=== PATIENT | female | born 1950 | race Caucasian/White ===

== ENCOUNTER 2023-07-16 08:56 | Emergency (ER) | payer MEDICARE, SELFPAY ==
[2023-07-16 09:02] VITALS: BP 161/74; PULSE 91; RESP 22; TEMP 36.1; O2SAT 99; BMI 36.5
[2023-07-16 09:22] LABS: Appearance Urine Slightly Cloudy (Clear); Bilirubin Urine Negative (Negative); Blood Urine 2+ (Negative); Color Urine Yellow (Yellow); Glucose Urine Negative (Negative); Ketones Urine Trace (Negative); Leukocyte Esterase Urine 3+ (Negative); Nitrite Urine Negative (Negative); Protein Urine 2+ (Negative); Specific Gravity Urine >= 1.030 (1.000-1.030); Urobilinogen Urine 0.2 (0.2-1.0)
[2023-07-16 09:33] LABS: Bacteria Urine Moderate; Squamous Epithelial Cell Urine Few (None-Few); WBC Urine >100 (0-5)
--- NOTE | 2023-07-16 09:38 | ED_ITS ---
HPI - General Adult General Date Seen: 07/16/23 Chief complaint: Urogenital Problems, Female Stated complaint: possible UTI Time Seen by Provider: 07/16/23 09:37 History of Present Illness HPI narrative: 73-year-old female presenting to the ER today for evaluation of urinary tract infection symptoms. Symptoms began about 4 weeks ago on June 15. She was put on a course of antibiotics but did not improve. She had a vaginal exam that showed a possible fungal infection and was prescribed an antifungal but did not take it because she was worried it would cause her fibromyalgia flare up. According to records through [facility] she has a history of colon polyps, history of endometrial cancer, depression, sleep apnea, kidney stones, fibromyalgia. It looks like she had urinalyses done through the [facility] system on 06/15 (showed> 100 WBC, 6-10 RBC, negative nitrite. Urine Culture grew multiple organisms), 06/27 (showed 3-5 WBC, 0-2 RBC, negative nitrite), and 07/01 (only urine micro was done, showed 50-100 WBC. Urine Culture grew multiple organisms. She also had a vaginal swab that was positive for Chloé glabrata). She was prescribed cephalexin on 06/15. She was prescribed Duricef on 07/01. She says that with each course of antibiotics her symptoms temporarily got better but then she has resumption of her symptoms. For the past several days she has had recurrent bouts of urgency and frequency as well as dysuria and suprapubic abdominal pain. No also developing pain low in her low back (but not into her flank). She is not having any fever chills. No nausea or vomiting. No constitutional symptoms. No vaginal bleeding or discharge. Given the multiple recurrences this month, her providers told her to come here to the ER. Related Data Home Medications ?Medication ?Instructions ?Recorded ?Confirmed sertraline 100 mg tablet mg PO 07/16/23 Previous Rx's ?Medication ?Instructions ?Recorded ciprofloxacin HCl 500 mg tablet 500 mg PO BID PRN #14 tabs 07/16/23 fluconazole 150 mg tablet 150 mg PO DAILY 1 dose #1 tab 07/16/23 phenazopyridine 200 mg tablet 200 mg PO TID PRN pain #10 tabs 07/16/23 (Pyridium) Allergies Allergy/AdvReac Type Severity Reaction Status Date / Time No Known Drug Allergies Allergy Verified 07/16/23 10:55 [facility] Social History Smoking Status: Never smoker Do you use any of these nicotine containing products: None How often do you have a drink containing alcohol: never How often do you have six or more drinks on one occasion: Never AUDIT-C Alcohol total score: 0 Exam Narrative: Exam Narrative: Constitutional: Appears well-developed and well-nourished. Alert. Conversant. Non toxic. HENT: Head: Atraumatic. Nose: Nose normal. Mouth/Throat: Oral mucosa is clear and moist. no trismus. Pharynx normal Eyes: Conjunctivae normal. EOM normal. Pupils equal, round, and reactive to light. No scleral icterus. Neck: Normal range of motion. Neck supple. No tracheal deviation present. Cardiovascular: Normal rate, regular rhythm. No gallop. No friction rub. No murmur heard. Symmetric radial artery pulses Pulmonary/Chest: Effort normal. No stridor. No respiratory distress. No wheezes. No rales. No rhonchi . No tenderness. Abdominal: Soft. Bowel sounds normal. No distension. No mass. Suprapubic tenderness. No rebound. No guarding. No CVA tenderness Musculoskeletal: RUE: Normal range of motion. No tenderness. No deformity LUE: Normal range of motion. No tenderness. No deformity RLE: Normal range of motion. No edema. No tenderness. No deformity LLE: Normal range of motion. No edema. No tenderness. No deformity Neurological: Alert and oriented to person, place, and time. Normal strength. CN II-VII intact. No sensory deficit. GCS eye subscore is 4. GCS verbal subscore is 5. GCS motor subscore is 6. Normal coordination Skin: Skin is warm and dry. No rash noted. No pallor. Normal capillary refill. Psychiatric: Normal mood. Normal affect. Const: Vital Signs, click to edit/add: Vital Signs - 24 hr 07/16/23 09:02 Temperature 97 F L Pulse Rate [Pulse Oximeter] 91 Respiratory Rate 22 Blood Pressure [Ri ght Forearm] 161/74 H Pulse Oximetry 99 Oxygen Delivery Me thod Room Air Course Vital Signs Vital signs: Initial Vital Signs Temperature 97 F L 07/16/23 09:02 Temperature Source Temporal Artery Scan 07/16/23 09:02 Pulse Rate 91 07/16/23 09:02 Respiratory Rate 22 05/31/24 09:02 Blood Pressure 161/74 H 07/16/23 09:02 Blood Pressure Mean 103 07/16/23 09:02 Pulse Oximetry 99 07/16/23 09:02 Oxygen Delivery Method Room Air 07/16/23 09:02 Vital Signs Temperature 97 F L 07/16/23 09:02 Pulse Rate 91 07/16/23 09:02 Respiratory Rate 22 07/16/23 09:02 Blood Pressure 161/74 H 07/16/23 09:02 Pulse Oximetry 99 07/16/23 09:02 Oxygen Delivery Method Room Air 07/16/23 09:02 Temperature 97 F L 07/16/23 09:02 Pulse Rate 91 07/16/23 09:02 Respiratory Rate 22 07/16/23 09:02 Blood Pressure 161/74 H 07/16/23 09:02 Pulse Oximetry 99 07/16/23 09:02 Oxygen Delivery Method Room Air 07/16/23 09:02 Medications Administered Medications: Discontinued Medications Generic Name Dose Route Start Last Admin Trade Name Pamela PRN Reason Stop Dose Admin Ciprofloxacin 500 mg 07/16/23 11:40 07/16/23 11:47 Ciprofloxacin 500 Mg Tablet PO 07/16/23 11:41 500 mg ONCE ONE Administration Phenazopyridine HCl 200 mg 07/16/23 10:00 07/16/23 10:35 Phenazopyridine Hcl 200 Mg Tablet PO 07/16/23 10:01 200 mg ONCE ONE Administration Medical Decision Making MDM Narrative Medical decision making narrative: This is a pleasant 73-year-old female presenting to the ER today with symptoms indicative of UTI including suprapubic abdominal pain, low back pain, urinary frequency and urgency, dysuria. Urinalysis does show pyuria. This is actually her 3rd episode of these symptoms this month. Previous visits to the urgent care have shown abnormal urinalyses and she was put on 2 different courses of cephalosporin but has recurrent symptoms. I do suspect he probably has a complicated UTI, possibly a resistant pathogen. Differential would include resistant pathogen. We did have the nurses do a straight cath to get a urine sample directly from the bladder to avoid contamination will send urine culture from the catheterized specimen. Since she has failed antibiotics with cephalosporins will switch to fluoroquinolone. First dose of Cipro administered here in the ER. CT scan is obtained to look for other anatomic abnormality affecting her urinary tract. No evidence for any kidney stone or bladder stone or ureteral duplication or other explanation for recurrent UTI. CT scan does show bladder wall inflammation consistent with cystitis which correlates with her symptoms. Laboratory workup is reassuring. Normal white count. Normal kidney function. Vital signs are stable. She is not febrile. No sepsis physiology. At this point, with reasonable clinical confidence I think she is safe for outpatient management. Will put her on ciprofloxacin. We will have to await urine culture results to determine sensitivities and adjust antibiotics as necessary. Patient was diagnosed with a yeast infection in the clinic in mid June. She is not sure if it has been treated or not. I did have her repeat a vaginal self swab today which is again positive for Chloé glabrata. Will treat with oral antifungals, Diflucan 150 mg once. Patient notified by phone call and she will greens picker the prescription and take it. Lab Data Labs: Lab Results 07/16/23 07/16/23 07/16/23 Range/Units 09:10 10:05 10:15 WBC 6.64 (4.50-11.00) K/uL RBC 4.05 (4.00-5.20) m/uL Hgb 12.2 (12.0-16.0) gm/dL Hct 37.5 (33.0-51.0) % MCV 93 (80-100) fL MCH 30 (26-34) pg MCHC 33 (32-36) gm/dL RDW Coeff of Justin 12.7 (11.5-15.5) % Plt Count 231 (140-440) K/uL Neut % (Auto) 71.2 (42.0-72.0) % Lymph % (Auto) 22.1 (20-44) % Lea % (Auto) 6.0 (0.0-11.0) % Eos % (Auto) 0.2 (0.0-7.0) % Baso % (Auto) 0.3 (0.0-3.0) % Neut # (Auto) 4.73 (1.7-7.0) K/uL Lymph # (Auto) 1.47 (0.90-2.90) K/uL Lea # (Auto) 0.40 (0.00-0.90) K/UL Eos # (Auto) 0.01 (0.00-0.50) K/uL Baso # (Auto) 0.02 (0.00-0.30) K/uL Abs Immat Gran (auto) 0.01 (0.00-0.30) K/uL Imm/Tot Granulo (auto) 0.2 % Sodium 139 (135-149) mmol/L Potassium 3.9 (3.6-5.1) mmol/L Chloride 108 (96-114) mmol/L Carbon Dioxide 26 (20-32) mmol/L Anion Gap 5 L (7-15) mEq/L BUN 20 (7-30) mg/dL Creatinine 0.9 (0.5-1.5) mg/dL Estimated Creat Clear 34.91 Estimated GFR 67 ml/min Glucose 108 (60-115) mg/dL Calcium 9.4 (8.4-10.6) mg/dL Urine Color Yellow (Yellow) Urine Appearance Slightly Cloudy A (Clear) Urine pH 6.0 (5.0-8.5) Ur Specific [place] >= 1.030 (1.000-1.030) Urine Protein 2+ A (Negative) Urine Glucose (UA) Negative (Negative) Urine Ketones Trace A (Negative) Urine Blood 2+ A (Negative) Urine Nitrite Negative (Negative) Urine Bilirubin Negative (Negative) Urine Urobilinogen 0.2 (0.2-1.0) Ur Leukocyte Esterase 3+ A (Negative) Urine RBC 10-25 A (0-2) Urine WBC >100 A (0-5) Ur Squamous Epith Cells Few (None-Few) Urine Bacteria Moderate A (None) Vaginal Bacterial Vaginosis Negative (Negative) Vaginal Chloé species NOT DETECTED (No Detected) Vag C. glabrata/krusei DETECTED A (No Detected) Vag T. vaginalis NOT DETECTED (No Detected) Imaging Data CT scan - abdomen: Attestation: I have reviewed the pertinent imaging results. Radiologist's impression: IMPRESSION: 1. No ureteral stones or hydroureteronephrosis. 2. New circumferential stranding about the urinary bladder, concerning for cystitis. No bladder stone. 3. Bilateral nonobstructing nephrolithiasis. Discharge Plan Discharge Clinical Impression: Urinary tract infection, Yeast infection Patient Disposition: Home, Self-Care Condition: Stable Instructions: Urinary Tract Infection in Women (DC) Additional Instructions: As we discussed, please start on the new antibiotic (Cipro) twice daily for 7 days. We will call you if your urine culture grows unusual strain of bacteria that requires another change in antibiotics. If you have worsening symptoms such as fever or chills, uncontrolled nausea vomiting, flank pain or back pain, or worsening abdominal pain, or weakness, come back to the ER right away to be rechecked. Even if you are getting better, Please follow-up with your regular doctor and [facility] next week for a recheck. Prescriptions: New phenazopyridine [Pyridium] 200 mg tablet 200 mg PO TID PRN (Reason: pain) Qty: 10 0RF ciprofloxacin HCl 500 mg tablet 500 mg PO BID PRNQty: 14 0RF fluconazole 150 mg tablet 150 mg PO DAILY Qty: 1 0RF Rx Instructions: administer on day 1 of therapy No Action sertraline 100 mg tablet PO Follow Up/Referrals: Tenisha Gupta MD [Primary Care Provider] - Stand Alone Forms: [employer] Info Instructions
--- NOTE | 2023-07-16 10:02 | CRLHL7_ITS ---
For Patients: As a result of the Century Cures Act, medical imaging exams and procedure reports are released immediately into your electronic medical record. You may view this report before your referring provider. If you have questions, please contact your health care provider. INDICATION: Lower abdominal pain. Back pain. TECHNIQUE: CT abdomen and pelvis acquired without contrast. COMPARISON: CT abdomen and pelvis 12/19/2016. FINDINGS: Lower chest: Unremarkable. Liver: Unremarkable. Spleen: Unremarkable. Pancreas: Unremarkable. Gallbladder and bile ducts: No calcified stones or biliary ductal dilatation. Kidneys: Bilateral nonobstructing renal stones measuring up to 4 mm on the right. Bilateral parapelvic cysts, unchanged. No ureteral stones or hydroureteronephrosis. Adrenal glands: Unremarkable. GI tract: No obstruction or focal inflammatory changes. Normal appendix. No free air or free fluid. Lymph nodes: No pathologic lymphadenopathy. Vascular structures: Unremarkable. Pelvic Organs: Mild circumferential heterogeneous stranding about the urinary bladder is new. No bladder stone. Bladder as imaged is otherwise unremarkable. Hysterectomy. Bones: No acute or suspicious osseous abnormality. Degenerative changes of the spine and pelvis. IMPRESSION: 1. No ureteral stones or hydroureteronephrosis. 2. New circumferential stranding about the urinary bladder, concerning for cystitis. No bladder stone. 3. Bilateral nonobstructing nephrolithiasis. Dictated by Garland Wen MD @ 07/16/2023 11:21:00 AM Please note that all CT scans at this facility use dose modulation, iterative reconstruction, and/or weight-based dosing when appropriate to reduce radiation dose to as low as reasonably achievable. Dictated by: Garland Wen MD @ 07/16/2023 11:21:11 (Electronically Signed)
[2023-07-16 10:26] LABS: Basophils Absolute Auto 0.02 K/uL (0.00-0.30); Basophils Percent Auto 0.3 % (0.0-3.0); Eosinophils Absolute Auto 0.01 K/uL (0.00-0.50); Eosinophils Percent Auto 0.2 % (0.0-7.0); Hematocrit 37.5 % (33.0-51.0); Hemoglobin* 12.2 gm/dL (12.0-16.0); Immature Granulocytes Abs Auto 0.01 K/uL (0.00-0.30); Immature Granulocytes Pct Auto 0.2 %; Lymphocytes Absolute Auto 1.47 K/uL (0.90-2.90); Lymphocytes Percent Auto 22.1 % (20-44); Mean Corpuscular HGB Conc 33 gm/dL (32-36); Mean Corpuscular Hemoglobin 30 pg (26-34); Mean Corpuscular Volume 93 fL (80-100); Neutrophils Absolute Auto 4.73 K/uL (1.7-7.0); Neutrophils Percent Auto 71.2 % (42.0-72.0); Platelet Count* 231 K/uL (140-440); RDW Coefficient of Variation % 12.7 % (11.5-15.5); Red Blood Count 4.05 m/uL (4.00-5.20); White Blood Count* 6.64 K/uL (4.50-11.00)
[2023-07-16 10:27] LABS: Slide Review Reflex No
[2023-07-16] MEDS: PHENAZOPYRIDINE HCL 200 MG TABLET PO (10:35)
[2023-07-16 10:39] LABS: Chloride* 108 mmol/L (96-114); Potassium* 3.9 mmol/L (3.6-5.1); Sodium* 139 mmol/L (135-149)
[2023-07-16 10:42] LABS: Anion Gap 5 mEq/L (7-15); Blood Urea Nitrogen* 20 mg/dL (7-30); Carbon Dioxide* 26 mmol/L (20-32); Creatinine* 0.9 mg/dL (0.5-1.5); Est. Creatinine Clearance* 34.91; Estimated Glomerular Filt Rate 67 ml/min; Glucose* 108 mg/dL (60-115)
[2023-07-16 10:43] LABS: Calcium* 9.4 mg/dL (8.4-10.6)
[2023-07-16] MEDS: CIPROFLOXACIN 500 MG TABLET PO (11:47)
[2023-07-16 11:55] LABS: Bacterial Vaginosis* Negative (Negative); Candida glab/krus DETECTED (No Detected); Candida species NOT DETECTED (No Detected); Trichomonas vaginalis NOT DETECTED (No Detected)
== END 2023-07-16 11:57 | disposition home or self-care (01) ==
PROVIDERS: Emergency Provider Emergency Medicine; PCP Family Medicine
DX: N39.0 Urinary tract infection, site not specified (principal); B37.9 Candidiasis, unspecified
CPT/HCPCS: 36415; 74176; 80048; 81001; 81513; 85025; 87086; 87481; 87661; 99284; A9270

== ENCOUNTER 2025-01-17 11:53 | Emergency (ER) | payer MEDICARE, SELFPAY ==
--- OUTSIDE RECORDS SUMMARY | 2025-01-17 11:56 | XMS_ITS | Clinical Summary ---
Author Organization [facility] Address [address] [place] [id number] Care Team Providers Care Sanitarian Aide Name Role Phone Tenisha Gupta MD Primary Care Provider Allergies Active Allergy Reactions Criticality Noted Date Comments Rosuvastatin Confusion 01/21/2023 Medications medication order composer Sushila nasal CPAP mask with headgear. Diagnosis 327.23 1 unit 0 5 Active cetirizine (ZYRTEC) 10 mg tablet Take 1 tablet by mouth once daily. 0 8 Active sertraline 100 mg tabletIndicatio ns:Depression, major, single episode, mild Take 1 Tablet (100 mg) by mouth once daily. 90 Tablet 3 5 Active Active Problems Problem Noted Date Diagnosed Date Depression, major, single episode, mild 01/22/20 23 Adenomatous colon polyp 09/16/2018 Overview (09/16/2018): Colonoscopy 09/2018 multiple polyps, repeat in 3 years Kidney stone on right side 12/30/2016 Kidney stone on left side 12/30/2016 Endometrial cancer (HC). FIGO IA, grade 2. / 6 11/11/2015 DIANA (obstructive sleep apnea) 03/28/2014 Post-menopausal bleeding 10/03/2013 Abdominal pain 07/22/2012 Fibromyalgia 12/08/2011 Immunizations Immunization Administration Dates Next Due Pneumococcal conj 13-Valent (Prevnar 13) 019 Tdap 07/19/2012 Family History Medical History Relation Name Comments chronic lyme Sister Cancer-breast No Family History Cancer-colon No Family History Relation Name Status Comments Father (Age 50s) plane craps dealer sh Mother Alive Sister Social History Tobacco Use Types Packs/Day Years Used Date Smoking Tobacco: Former Cigarettes 0.5 3.2 0 08/12/1966 - 10/10/1969 Smokeless Tobacco: Never Tobacco Cessation:Counseling Given: Yes Alcohol Use Standard Drinks/Week Comments No 0 (1 standard drink = 0.6 oz pur e alcohol) PHQ-2 Answer Date Recorded PHQ-2 TOTAL SCORE 0 05/18/2024 Social Connections Answer Date Recorded Do you often feel lonely or isolated from those around you? 0 07/01/2023 Financial Resource Strain Answer Date R ecorded Difficulty of Paying Living Expenses 3 07/01/2023 Difficulty of Paying Living Expenses Not on file 07/01/2023 Food Insecurity Answer Date Recorded Do you worry your food will run out before you are able to buy more? 1 07/01/2023 Transportation Needs Answer Date Record ed Does lack of transportation keep you from medica l appointments? 1 07/01/2023 Does lack of transportation keep you from work, meetings or getting things that you need? 1 07/01/2023 Housing Stability Answer Date Recorded What is your housing situation today? 1 07/01/2023 Utilities Answer Date Recorded Do you have trouble paying f or utilities (for example, heat, electricity, water, phone)? 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 Gender Identity Not on file Sexual Orientation Not on file Occupation Industry Job Start Date Job End Date self employed Not on file Not on file Not on file Obstetrics History Para Term AB IAB SAB Ectopic Multiple Livin g Live Births 2 2 2 Date Outcome GA Total Labor Labor/2nd/3rd Weight Sex Type Anes PTL Lizeth A1 A5 Name Clin Para Para Last Filed Vital Signs Vital Sign Reading Time Taken Comments Blood Pressure 145/68 05/18/2024 11:06 AM CDT Pulse 70 05/18/2024 11:06 AM CDT Temperature 36.7 C (98.1 F) 07/02/2023 11:28 AM CDT Respiratory Rate 16 10/11/2015 2:15 PM CDT Oxygen Saturation 99% 05/18/2024 11:06 AM CDT Inhaled Oxygen Concentration - - Weight 88.3 kg (194 lb 9.6 oz) 05/18/2024 11:06 AM CDT Height 152 cm (4' 11.84) 05/18/2024 11:06 AM CD T Body Mass Index 38.2 05/18/2024 11:06 AM CDT Plan of Treatment Health Maintenance Due Date Last Done Comments Zoster (shingles) series for age 50+ (1 of 2) 1998 Pneumococcal series for age 50+ (2 of 2 - PCV20 or PCV21) 08/10/2019 08/09/2018 Tetanus booster 07/19/2022 07/19/2012 RSV vaccine for adults or (1 - 1-dose 75+ series) 2023 COVID-19 vaccine series ( - season) 2024 Influenza Vaccine (#1) 2024 BMI (ht and wt on same day) for age 18+ 05/18/2025 05/18/2024, 07/02/2023, 01/02/2022, Additional history exists Depression screening for age 12+ 05/18/2025 05/18/2024, 01/21/2023, 01/02/2022, Additional history exists Medicare Wellness for age 65+ 05/19/2025 05/18/2024 DEXA/DXA scan for age 65+ Completed 08/11/2018 Hepatitis C screening for age 18-79 Completed 01/02/2022 Hepatitis B series for 19+ Aged Out N o longer eligible based on patient's age to complete this topic Procedures Procedure Name Priority Date/Time Associated Diagnosis Comments ANTI HCV Routine 01/02/2022 9:11 AM TABLE GAMES SUPERVISOR Need for hepatitis C screening test XR DXA BONE DENSITY 2 SITES AXIAL Routine 08/11/2018 9:28 AM CDT Post-menopausal from Last 3 Months or Most Recently Relevant to Health Maintenance Results * ANTI HCV (01/02/2022 9:11 AM TABLE GAMES SUPERVISOR) HEPATITIS C ANTIBODY Non-React gael Non-React gael 01/04/2022 1:51 PM TABLE GAMES SUPERVISOR [facility] Comment:Antibodies to HCV no t detected; does not exclude the possibility of exposure to HCV. Blood BLOOD SPECIMEN / Unknown Venipuncture / Unknown 01/02/2022 9:11 AM TABLE GAMES SUPERVISOR 01/02/2022 9:14 AM TABLE GAMES SUPERVISOR Tenisha Gupta MD SEND OUTS Final R esult [facility] [address] [place] [address], [place] * (ABNORMAL) XR DXA BONE DENSITY 2 SITES AXIAL (08/11/2018 9:28 AM CDT) Anatomical Region Laterality Modality Spine, HIPS, HIPL, HIPR Other Narrative 08/22/2018 5:29 PM CDT Please see scanned document for results of this study. Tenisha Gupta MD DEXA Final R esult from Last 3 Months or Most Recently Relevant to Health Maintenance Insurance MEDICARE PART A HB ONLY MEDICARE PB ONLY Advance Directives * Full Code (Latest Code Status on File) Date Activated Date Inactivated Comments 10/11/2015 10:15 AM 10/11/2015 4:47 PM * Full Code Date Activated Date Inactivated Comments 10/11/2015 6:12 AM 10/11/2015 10:15 AM * Full Code Date Activated Date Inactivated Comments 10/20/2013 6:08 AM 10/20/2013 11:59 AM Care Teams Sanitarian Aide Relationship Specialty Start Date End Date Tenisha Gupta MD PCP - General Family Practice 12/22/16
[2025-01-17 12:12] VITALS: BP 188/81; PULSE 82; RESP 18; TEMP 36.6; O2SAT 99; BMI 36.1
--- NOTE | 2025-01-17 12:20 | ED.GENADULT ---
HPI - General Adult General Time Seen by Provider: 12:20 Date Seen: 01/17/25 Chief complaint: Chest Pain Stated complaint: possible Heat attack indigestion Time Seen by Provider: 01/17/25 12:07 History of Present Illness HPI narrative: Robert is a 74-year-old female with depression currently on Zoloft, allergies seasonal, Zyrtec presents emerged department via private car with with possible chest pain and indigestion. Patient states she got up this morning and had breakfast at 8 am, shortly after she developed some epigastric discomfort, the pain radiated to the back, associated nausea vomiting, she denies any diarrhea. Patient did have hysterectomy, 2 C sections. She then developed some atypical chest discomfort tightness, generalized, no changes with inspiration, she denied any lightheadedness or dizziness. Epigastric discomfort improved, she did develop some bilateral jaw pain heaviness to both of her arms. Minimal pain at this time. History of any CAD or stroke, no hypertension or diabetes. Patient states that her mood has been normal. Related Data Home Medications ?Medication ?Instructions ?Recorded ?Confirmed sertraline 100 mg tablet mg PO 07/16/23 Previous Rx's ?Medication ?Instructions ?Recorded ciprofloxacin HCl 500 mg tablet 500 mg PO BID PRN #14 tabs 07/16/23 fluconazole 150 mg tablet 150 mg PO DAILY 1 dose #1 tab 07/16/23 phenazopyridine 200 mg tablet 200 mg PO TID PRN pain #10 tabs 07/16/23 (Pyridium) Allergies Allergy/AdvReac Type Severity Reaction Status Date / Time No Known Drug Allergies Allergy Verified 01/17/25 14:35 Review of Systems Status of ROS: Reports: 10 or more systems reviewed and unremarkable except as noted in History and below PFSH PFS Social History Smoking Status: Never smoker Do you use any of these nicotine containing products: None How often do you have a drink containing alcohol: never How often do you have six or more drinks on one occasion: Never AUDIT-C Alcohol total score: 0 Non-prescribed substance use: denies use Exam Narrative: Exam Narrative: General: No obvious distress sitting comfortably HEENT: Pupils equal round reactive to light, extra muscles intact Oropharynx moist, patient able to actively open and close her mouth, no audible click No cervical pain Lungs: Clear to auscultation bilaterally Heart: Normal sinus rhythm S1-S2 Abdomen: Mild tenderness to palpation the epigastric region Bowel sounds present, soft. Muscle skeletal: No lower extremity edema, +5 strength upper lower extremities Neuro: Alert awake and oriented x3 Const: Vital Signs, click to edit/add: Vital Signs - 24 hr 01/17/25 12:12 Temperature 98 F Pulse Rate [Pulse Oximeter] 82 Respiratory Rate 18 Blood Pressure [Le ft Upper Arm] 188/81 H Pulse Oximetry 99 Oxygen Delivery Me thod Room Air Course Course ED Course: 12:00 PM: aidet performed, vitals are normal at this time, mildly elevated blood pressure will continue monitor, workup will include IV peripheral, 15 mg IV Toradol for atypical pain, will obtain EKG, troponin I, CBC, CRP, CMP, D-dimer and lipase, critical presentation for ACS, will plan to rule out. Patient has no pain at this time. Differential includes gastritis, NSTEMI, STEMI, ACS, PE, aortic dissection, pneumonia, heart failure, costochondritis, cholecystitis, pancreatitis, hepatitis, colitis as well as other etiologies. Reevaluation(s) Time of Reevaluation #1: 15:14 Reevaluation #1: CTA chest angiogram pulmonary arteries with IV contrast: IMPRESSION: No evidence of pulmonary embolus or acute airspace disease. EKG showed a normal sinus rhythm, nonspecific ST and T-wave abnormality, no elevation or depression, 1st high sensitivity troponin was within normal limits and negative, CBC showed no leukocytosis or anemia, comprehensive metabolic panel showed normal electrolytes, renal function and LFTs, D-dimer mildly elevated at 0.66, CTA obtained which showed no acute cardiopulmonary process, 2nd high sensitivity troponin was also within normal limits 5.5, she was given additional GI cocktail and resolved her symptoms. Offered outpatient stress echo but she deferred at this time, should follow-up with her primary care provider over the next 7-10 days, return precautions given. Vital Signs Vital signs: Initial Vital Signs Respiratory Effort Normal, Spontaneous 01/17/25 11:53 Respiratory Depth Normal 01/17/25 11:53 Respiratory Pattern Normal 01/17/25 11:53 Vital Signs Temperature 98 F 01/17/25 12:12 Pulse Rate 82 01/17/25 12:12 Respiratory Rate 18 01/17/25 12:12 Blood Pressure 188/81 H 01/17/25 12:12 Pulse Oximetry 99 01/17/25 12:12 Oxygen Delivery Method Room Air 01/17/25 12:12 Temperature 98 F 01/17/25 12:12 Pulse Rate 82 01/17/25 12:12 Respiratory Rate 18 01/17/25 12:12 Blood Pressure 188/81 H 01/17/25 12:12 Pulse Oximetry 99 01/17/25 12:12 Oxygen Delivery Method Room Air 01/17/25 12:12 Medications Administered Medications: Discontinued Medications Generic Name Dose Route Start Last Admin Trade Name Pamela PRN Reason Stop Dose Admin Ketorolac Tromethamine 15 mg 01/17/25 12:18 01/17/25 13:34 Ketorolac 15 Mg/Ml Inj IVP 01/17/25 12:19 15 mg ONCE ONE Administration Medical Decision Making Lab Data Labs: Lab Results 01/17/25 01/17/25 Range/Units 12:32 12:59 WBC 5.44 (4.50-11.00) K/uL RBC 4.16 (4.00-5.20) m/uL Hgb 12.8 (12.0-16.0) gm/dL Hct 38.9 (33.0-51.0) % MCV 94 (80-100) fL MCH 31 (26-34) pg MCHC 33 (32-36) gm/dL RDW Coeff of Justin 12.8 (11.5-15.5) % Plt Count 181 (140-440) K/uL Neut % (Auto) 52.1 (42.0-72.0) % Lymph % (Auto) 38.4 (20-44) % Republic % (Auto) 8.1 (0.0-11.0) % Eos % (Auto) 0.6 (0.0-7.0) % Baso % (Auto) 0.4 (0.0-3.0) % Neut # (Auto) 2.84 (1.7-7.0) K/uL Lymph # (Auto) 2.09 (0.90-2.90) K/uL Republic # (Auto) 0.40 (0.00-0.90) K/UL Eos # (Auto) 0.03 (0.00-0.50) K/uL Baso # (Auto) 0.02 (0.00-0.30) K/uL Abs Immat Gran (auto) 0.02 (0.00-0.30) K/uL Imm/Tot Granulo (auto) 0.4 % D-Dimer Quant (PE/DVT) 0.66 H (0.00-0.50) ug/ml Sodium 138 (135-149) mmol/L Potassium 4.3 (3.6-5.1) mmol/L Chloride 100 (96-114) mmol/L Carbon Dioxide 28 (20-32) mmol/L Anion Gap 10 (7-15) mEq/L BUN 15 (7-30) mg/dL Creatinine 0.8 (0.5-1.5) mg/dL Estimated Creat Clear 36.12 Estimated GFR 76 ml/min Glucose 127 H (60-115) mg/dL Calcium 9.7 (8.4-10.6) mg/dL Total Bilirubin 0.5 (0.1-1.5) mg/dL AST 22 (12-35) U/L ALT 17 (4-35) U/L Alkaline Phosphatase 43 (40-150) U/L POC Troponin I High Sensi < 2.9 L (2.9-13.0) pg/mL C-Reactive Protein 0.6 (0.5-1.0) mg/dL Total Protein 7.5 (6.0-8.3) g/dL Albumin 4.3 (3.3-5.0) g/dL Lipase 78 (23-300) U/L Discharge Plan Discharge Clinical Impression: Acute epigastric pain, Arm heaviness, Throat discomfort Patient Disposition: Home, Self-Care Condition: Improved Instructions: Chest Pain (ED), Abdominal Pain (ED) Additional Instructions: To follow up with primary care provider in the next 7-10 days. Activity Level: No Restrictions Prescriptions: No Action sertraline 100 mg tablet PO phenazopyridine [Pyridium] 200 mg tablet 200 mg PO TID PRN (Reason: pain) Qty: 10 0RF ciprofloxacin HCl 500 mg tablet 500 mg PO BID PRNQty: 14 0RF fluconazole 150 mg tablet 150 mg PO DAILY Qty: 1 0RF Rx Instructions: administer on day 1 of therapy Follow Up/Referrals: Tenisha Gupta MD [Primary Care Provider, Family Practice] Stand Alone Forms: [employer] Info Instructions
[2025-01-17 12:58] LABS: Albumin* 4.3 g/dL (3.3-5.0); Chloride* 100 mmol/L (96-114); Sodium* 138 mmol/L (135-149)
[2025-01-17 12:59] LABS: Hematocrit* 38.9 % (33.0-51.0); Hemoglobin* 12.8 gm/dL (12.0-16.0); Immature Granulocytes Abs Auto 0.02 K/uL (0.00-0.30); Immature Granulocytes Pct Auto 0.4 %; Lymphocytes Absolute Auto 2.09 K/uL (0.90-2.90); Mean Corpuscular HGB Conc 33 gm/dL (32-36); Mean Corpuscular Hemoglobin 31 pg (26-34); Mean Corpuscular Volume 94 fL (80-100); Potassium* 4.3 mmol/L (3.6-5.1); RDW Coefficient of Variation % 12.8 % (11.5-15.5); Red Blood Count* 4.16 m/uL (4.00-5.20); White Blood Count* 5.44 K/uL (4.50-11.00)
[2025-01-17 13:01] LABS: Alanine Aminotransferase* 17 U/L (4-35); Alkaline Phosphatase* 43 U/L (40-150); Anion Gap 10 mEq/L (7-15); Aspartate Amino Transferase* 22 U/L (12-35); Bilirubin Total* 0.5 mg/dL (0.1-1.5); Blood Urea Nitrogen* 15 mg/dL (7-30); Carbon Dioxide* 28 mmol/L (20-32); Creatinine* 0.8 mg/dL (0.5-1.5); Est. Creatinine Clearance* 36.12; Estimated Glomerular Filt Rate 76 ml/min; Total Protein* 7.5 g/dL (6.0-8.3)
[2025-01-17 13:02] LABS: Calcium* 9.7 mg/dL (8.4-10.6); Glucose* 127 mg/dL (60-115); Slide Review Reflex No
[2025-01-17 13:33] LABS: D Dimer Quantitative* 0.66 ug/ml (0.00-0.50)
--- NOTE | 2025-01-17 13:52 | CRLHL7_ITS ---
For Patients: As a result of the Century Cures Act, medical imaging exams and procedure reports are released immediately into your electronic medical record. You may view this report before your referring provider. If you have questions, please contact your health care provider. INDICATIONS: Chest pain. Shortness of breath. TECHNIQUE: CT chest pulmonary angiogram acquired with 95 cc of Isovue 370 IV contrast. Sagittal, coronal and maximum intensity projection reformatted images submitted for review. COMPARISON: None. FINDINGS: No evidence of pulmonary embolus. Main pulmonary artery is normal in caliber. Suboptimally opacified thoracic aorta is normal in caliber. Heart size is within normal limits. No pathologic lymphadenopathy. No pleural or pericardial effusion. Soft tissues of the thoracic wall are unremarkable. No pneumothorax. Central airways are patent. Lungs are clear. Left parapelvic cyst and 3 mm nonobstructing left renal stone. Visualized upper abdomen is otherwise unremarkable. No acute or suspicious osseous abnormality. IMPRESSION: No evidence of pulmonary embolus or acute airspace disease. Dictated by Garland Wen MD @ 01/17/2025 2:50:49 PM Please note that all CT scans at this facility use dose modulation, iterative reconstruction, and/or weight-based dosing when appropriate to reduce radiation dose to as low as reasonably achievable. Dictated by: Garland Wen MD @ 01/17/2025 14:51:18 (Electronically Signed)
== END 2025-01-17 15:59 | disposition home or self-care (01) ==
PROVIDERS: Emergency Provider Student in an Organized Health Care Education/Training Program; PCP Family Medicine
DX: R10.13 Epigastric pain (principal); R29.898 Other symptoms and signs involving the musculoskeletal system; R07.0 Pain in throat; R07.89 Other chest pain; Z79.899 Other long term (current) drug therapy
CPT/HCPCS: 36415; 71275; 80053; 83690; 84484; 85025; 85379; 86140; 93005; 96374; 99283; 99284; 99285; J1885; Q9967